=== PATIENT | female | born 1960 | race Caucasian/White ===

== ENCOUNTER 2016-09-17 16:51 | Emergency (ER) | payer BC ==
[2016-09-17] MEDS ORDERED: METOPROLOL 5 MG/5 ML VIAL IV ONE ×2 (17:47→19:32)
[2016-09-17] MEDS ORDERED: SODIUM CHLORIDE 0.9% 50 ML IV ONE (19:33)
[2016-09-17] MEDS ORDERED: DIPHENHYDRAMINE 50 MG/ML VIAL ONE (20:41)
[2016-09-17] MEDS ORDERED: METOCLOPRAMIDE 10 MG/2 ML VIAL ONE (20:41)
[2016-09-17] MEDS ORDERED: MORPHINE 4 MG/ML SYR ONE (20:42)
[2016-09-17] MEDS ORDERED: SODIUM CHLORIDE 0.9% 500 ML IV ONE (20:42)
== END 2016-09-17 22:24 | disposition other institution (70) ==
LOC: ER 16:51
DX: H54.2 Low vision, both eyes (principal); I48.91 Unspecified atrial fibrillation; I25.2 Old myocardial infarction; E78.5 Hyperlipidemia, unspecified; E11.9 Type 2 diabetes mellitus without complications; I11.9 Hypertensive heart disease without heart failure; I25.10 Atherosclerotic heart disease of native coronary artery without angina pectoris; Z95.1 Presence of aortocoronary bypass graft; Z79.84 Long term (current) use of oral hypoglycemic drugs; Z79.01 Long term (current) use of anticoagulants; Z79.899 Other long term (current) drug therapy
CPT/HCPCS: 36415 ×2; 70450 ×2; 71010 ×2; 80053 ×2; 81001 ×2; 82553 ×2; 83735 ×2; 83880 ×2; 84484 ×2; 85025 ×2; 85610 ×2; 85730 ×2; 86677 ×2; 93005 ×2; 96361 ×2; 96374 ×2; 96375 ×2; 96376 ×2; 99285; J2270; J7040